=== PATIENT | female | born 1960 | race African-American/Black ===

== ENCOUNTER 2024-05-09 14:50 | Inpatient (IN) | payer OTHER ==
[~2024-05-09] VITALS: Ht 167.6 cm; Wt 65.3 kg
[2024-05-09 15:22] LABS: BASOPHILS % 0.9 % (0.0-2.0); EOSINOPHILS % 0.2 % (0.0-5.0); HEMOGLOBIN. 11.7 g/dL (12.0-16.0); LYMPHOCYTES % 28.8 % (20.0-50.0); MEAN CORPUSCULAR HEMOGLOBIN 29.6 pg (28.0-32.0); MEAN CORPUSCULAR HGB CONC 32.4 g/dL (31.0-37.0); MEAN CORPUSCULAR VOLUME 91.6 fL (81.0-99.0); MEAN PLATELET VOLUME 6.7 fl (7.4-10.4); MONOCYTES % 8.4 % (2.0-8.0); NEUTROPHILS % 61.7 % (40.0-76.0); PLATELET 274 x1000/uL (130-400); RED BLOOD CELL COUNT 3.93 mill/uL (4.2-5.4); RED CELL DISTRIBUTION WIDTH 15.5 % (11.6-14.6); WHITE BLOOD COUNT 10.4 x1000/uL (4.5-11.0)
[2024-05-09 15:29] LABS: CARBON DIOXIDE 23 mEq/L (21-32)
[2024-05-09 15:30] LABS: CHLORIDE 101 mEq/L (98-107); POTASSIUM 3.7 mEq/L (3.5-5.1); SODIUM 135 mEq/L (136-145)
[2024-05-09] MEDS: IOHEXOL-350 100 ML BOTTLE ONE ×2 (15:31→23:06)
[2024-05-09 15:33] LABS: PROTHROMBIN TIME 11.3 sec (9.6-11.0)
[2024-05-09 15:34] LABS: GLUCOSE 102 mg/dL (70-105); UREA NITROGEN BLOOD 42 mg/dL (9-23)
[2024-05-09 15:36] LABS: CREATINE KINASE 412 IU/L (34-145)
[2024-05-09] MEDS: ASPIRIN 81MG TABLET PO ONE (15:37)
[2024-05-09 15:54] LABS: ETHANOL BLOOD < 10 mg/dL (<10)
[2024-05-09 15:56] LABS: TROPONIN I HIGH SENSITIVITY 1729 ng/L (3.0-34)
[2024-05-09] MEDS ORDERED: IPRATROPIUM/ALBUTEROL 0.5-3(2.5)MG/3ML NEB HHN PRN (16:45)
[2024-05-09] MEDS ORDERED: ACETAMINOPHEN 650MG/20.3ML UDC GT PRN (16:45)
[2024-05-09] MEDS ORDERED: ONDANSETRON HCL 4MG/2ML INJ IV PRN (16:45)
[2024-05-09] MEDS: ASPIRIN 81MG TABLET PO NR (16:51)
[2024-05-09] MEDS: SODIUM CHLORIDE 0.9% 1,000 ML IV SCH (18:20)
[2024-05-09 18:36] LABS: CARBON DIOXIDE 24 mEq/L (21-32); CHLORIDE 101 mEq/L (98-107); SODIUM 136 mEq/L (136-145)
[2024-05-09 18:37] LABS: CALCIUM 9.6 mg/dL (8.7-10.4)
[2024-05-09 18:41] LABS: CREATININE 1.9 mg/dL (0.6-1.0); GLUCOSE 86 mg/dL (70-105)
[2024-05-09 18:42] LABS: UREA NITROGEN BLOOD 40 mg/dL (9-23)
[2024-05-09 18:43] LABS: ALANINE AMINOTRANSFERASE 13 IU/L (10-49); ALBUMIN 4.5 g/dL (3.2-4.8); ASPARTATE AMINOTRANSFERASE 30 IU/L (<34); IRON 54 ug/dL (50-170)
[2024-05-09 18:44] LABS: BILIRUBIN DIRECT 0.2 mg/dL (<=3.0); BILIRUBIN TOTAL 0.5 mg/dL (0.1-1.0); PHOSPHORUS 4.3 mg/dL (2.5-4.9); PROTEIN TOTAL 7.2 g/dL (6.0-8.3)
[2024-05-09 18:46] LABS: TOTAL IRON BINDING CAPACITY 294 ug/dl (250-425)
[2024-05-09 18:57] LABS: PARTIAL THROMBOPLASTIN TIME 26.1 sec (23.4-31.0); PROTHROMBIN TIME 10.9 sec (9.6-11.0)
[2024-05-09 19:04] LABS: TROPONIN I HIGH SENSITIVITY 1668 ng/L (3.0-34)
[2024-05-09 23:44] LABS: CLARITY URINE CLEAR (CLEAR); COLOR URINE YELLOW (YELLOW); GLUCOSE URINE NEGATIVE (NEGATIVE); KETONES URINE TRACE (NEGATIVE); LEUKOCYTE ESTERASE URINE NEGATIVE (NEGATIVE); NITRITE URINE NEGATIVE (NEGATIVE); OCCULT BLOOD URINE NEGATIVE (NEGATIVE); PH URINE 5.5 (4.5-8.0); PROTEIN URINE 1+ (NEGATIVE); SPECIFIC GRAVITY URINE 1.056 (1.005-1.030)
[2024-05-09 23:51] LABS: *AMPHETAMINES SCREEN URINE NEGATIVE (NEGATIVE)
[2024-05-09 23:52] LABS: *BARBITURATES SCREEN URINE NEGATIVE (NEGATIVE); *BENZODIAZEPINES SCREEN URINE NEGATIVE (NEGATIVE); *COCAINE SCREEN URINE NEGATIVE (NEGATIVE); CANNABINOID URINE SCREEN PRESUMPTIVE POSITIVE (NEGATIVE); ECSTASY MDMA SCREEN URINE NEGATIVE (NEGATIVE); METHADONE URINE SCREEN NEGATIVE (NEGATIVE); OPIATES URINE SCREEN NEGATIVE (NEGATIVE); PHENCYCLIDINE URINE SCREEN NEGATIVE (NEGATIVE)
[2024-05-10 00:24] LABS: SQUAMOUS EPITHELIAL CELL URINE 1+ /lpf (RARE/1+)
[2024-05-10 00:26] LABS: BACTERIA URINE 1+; RBC URINE 0-2 /hpf (0-2); WBC URINE 0-2 /hpf (0-2)
[2024-05-10 03:19] LABS: CREATINE KINASE MB FRACTION 7.8 ng/mL (0.5-3.6)
[2024-05-10 08:31] LABS: POTASSIUM 3.7 mEq/L (3.5-5.1)
[2024-05-10 08:32] LABS: CALCIUM 9.3 mg/dL (8.7-10.4)
[2024-05-10 08:37] LABS: CREATININE 1.4 mg/dL (0.6-1.0)
[2024-05-10 08:38] LABS: CREATINE KINASE MB FRACTION 9.8 ng/mL (0.5-3.6)
[2024-05-10 08:42] LABS: T4 FREE 1.42 ng/dL (0.89-1.76)
[2024-05-10 08:43] LABS: THYROID STIMULATING HORMONE 0.41 uIU/mL (0.55-4.78)
[2024-05-10] MEDS: ASPIRIN 81MG TABLET PO SCH ×2 (08:43→09:04)
[2024-05-10] MEDS ORDERED: HYDRALAZINE HCL 25MG TABLET PO PRN (10:00)
[2024-05-10] MEDS: CLOPIDOGREL 75MG TABLET PO SCH (10:52)
[2024-05-10 17:45] LABS: TROPONIN I HIGH SENSITIVITY 723 ng/L (3.0-34)
[2024-05-10 20:00] VITALS: BP 118/69; PULSE 68; RESP 18; TEMP 98.8
[2024-05-10] MEDS ORDERED: ATORVASTATIN CALCIUM 40MG TABLET PO SCH (21:00)
[2024-05-10] MEDS: ATORVASTATIN CALCIUM 40MG TABLET PO SCH (21:08)
[2024-05-11 01:10] VITALS: BP 99/58; PULSE 80; TEMP 98.8; O2SAT 100
[2024-05-11] MEDS ORDERED: ASPIRIN 81MG EC TABLET PO SCH (09:00)
== END 2024-05-11 01:58 | disposition short-term general hospital (02) | DRG 91 ==
LOC: ER 14:50 → MICUSO 16:19 → EDBEDREQTM 16:23 → EDBEDREQ 16:23 → 5WST 05-10 14:37 → 7EST 05-10 17:46
PROVIDERS: ADMIT Preventive Medicine Clinical Informatics; ATTEND Preventive Medicine Clinical Informatics
DX: R47.01 Aphasia (principal); I21.A1 Myocardial infarction type 2; N17.9 Acute kidney failure, unspecified; I13.0 Hypertensive heart and chronic kidney disease with heart failure and stage 1 through stage 4 chronic kidney disease, or unspecified chronic kidney disease; D64.9 Anemia, unspecified; N18.9 Chronic kidney disease, unspecified; I50.9 Heart failure, unspecified; E78.00 Pure hypercholesterolemia, unspecified; E11.22 Type 2 diabetes mellitus with diabetic chronic kidney disease; Z79.02 Long term (current) use of antithrombotics/antiplatelets; Z79.82 Long term (current) use of aspirin; Z82.49 Family history of ischemic heart disease and other diseases of the circulatory system; Z86.73 Personal history of transient ischemic attack (TIA), and cerebral infarction without residual deficits; Z88.0 Allergy status to penicillin; Z98.61 Coronary angioplasty status
CPT/HCPCS: 36415; 70496; 70498; 70551; 71045; 80048; 80061; 80076; 80305; 80320; 81003; 82550; 82553; 82728; 82962; 83036; 83540; 83550; 83605; 83735; 83880; 84100; 84439; 84443; 84484; 85025; 93005; 99291; Q9967; G0480

== ENCOUNTER 2024-08-13 14:50 | Inpatient (IN) | payer OTHER ==
[~2024-08-13] VITALS: Ht 170.2 cm; Wt 61.7 kg
[2024-08-13 15:57] LABS: BASOPHILS % 0.7 % (0.0-2.0); EOSINOPHILS % 3.3 % (0.0-5.0); HEMATOCRIT. 37.1 % (36.0-48.0); HEMOGLOBIN. 12.2 g/dL (12.0-16.0); LYMPHOCYTES % 35.3 % (20.0-50.0); MEAN CORPUSCULAR HEMOGLOBIN 30.2 pg (28.0-32.0); MEAN CORPUSCULAR HGB CONC 32.9 g/dL (31.0-37.0); MEAN CORPUSCULAR VOLUME 91.7 fL (81.0-99.0); MEAN PLATELET VOLUME 6.3 fl (7.4-10.4); MONOCYTES % 4.6 % (2.0-8.0); NEUTROPHILS % 56.1 % (40.0-76.0); PLATELET 326 x1000/uL (130-400); RED BLOOD CELL COUNT 4.05 mill/uL (4.2-5.4); RED CELL DISTRIBUTION WIDTH 14.5 % (11.6-14.6); WHITE BLOOD COUNT 9.1 x1000/uL (4.5-11.0)
[2024-08-13 16:02] LABS: CHLORIDE 104 mEq/L (98-107); SODIUM 141 mEq/L (136-145)
[2024-08-13 16:03] LABS: CARBON DIOXIDE 29 mEq/L (21-32)
[2024-08-13 16:04] LABS: CALCIUM 11.6 mg/dL (8.7-10.4)
[2024-08-13 16:08] LABS: CREATININE 1.4 mg/dL (0.6-1.0); GLUCOSE 152 mg/dL (70-105); PARTIAL THROMBOPLASTIN TIME 26.5 sec (23.4-31.0); PROTHROMBIN TIME 10.9 sec (9.6-11.0); UREA NITROGEN BLOOD 20 mg/dL (9-23)
[2024-08-13 16:32] LABS: TROPONIN I HIGH SENSITIVITY 39 ng/L (3.0-34)
[2024-08-13 18:22] LABS: TROPONIN I HIGH SENSITIVITY 51 ng/L (3.0-34)
[2024-08-13] MEDS: ASPIRIN 81MG TABLET PO ONE (18:36)
[2024-08-13 20:32] LABS: TROPONIN I HIGH SENSITIVITY 74 ng/L (3.0-34)
[2024-08-13 22:30] VITALS: BP 98/58; PULSE 77; RESP 16; TEMP 36.7516
[2024-08-13] MEDS ORDERED: PROT40 MT (23:47)
[2024-08-13] MEDS ORDERED: METF-416 MT (23:47)
[2024-08-13] MEDS ORDERED: ROSU40TA MT (23:47)
[2024-08-13] MEDS ORDERED: ROSU40TA PO (23:47)
[2024-08-13] MEDS ORDERED: RANO500T6 PO (23:53)
[2024-08-13] MEDS ORDERED: CLOP-31 PO (23:53)
[2024-08-13] MEDS ORDERED: GABA-532 PO (23:53)
[2024-08-13] MEDS ORDERED: METO25TA6 MT (23:55)
[2024-08-13] MEDS ORDERED: LISI-186 MT (23:55)
[2024-08-13] MEDS ORDERED: DULO60CA45 MT (23:55)
[2024-08-14] VITALS: BP 109/64; PULSE 79; RESP 20; TEMP 36.28068; O2SAT 99
[2024-08-14] MEDS ORDERED: GUAIFENESIN 200MG/10ML SUGAR FREE UDC PO PRN (00:15)
[2024-08-14] MEDS ORDERED: ONDANSETRON HCL 4MG/2ML INJ IV PRN (00:15)
[2024-08-14] MEDS ORDERED: ACETAMINOPHEN 325MG TABLET PO PRN ×2 (00:15)
[2024-08-14] MEDS ORDERED: IPRATROPIUM/ALBUTEROL 0.5-3(2.5)MG/3ML NEB HHN PRN (00:15)
[2024-08-14] MEDS ORDERED: DOCUSATE SODIUM 100MG CAPSULE PO PRN (00:15)
[2024-08-14] MEDS ORDERED: CLONIDINE 0.1MG TABLET PO PRN (00:15)
[2024-08-14] MEDS ORDERED: DEXTROSE 50% WATER 50ML SYRINGE IV PRN (00:15)
[2024-08-14] MEDS ORDERED: LORAZEPAM 0.5MG TABLET PO PRN (00:15)
[2024-08-14 04:00] VITALS: BP 107/69; PULSE 74; RESP 20; TEMP 36.114; O2SAT 100
[2024-08-14] MEDS: INSULIN LISPRO 100 UNITS/ML SUBCUT SCH (06:57)
[2024-08-14] MEDS: BLOOD SUGAR DIAGNOSTIC STRIP TEST SCH (07:20)
[2024-08-14] MEDS: SODIUM CHLORIDE 0.45% 1,000 ML IV SCH (07:23)
[2024-08-14 07:33] LABS: HEMATOCRIT 34.5 % (36.0-48.0); HEMOGLOBIN 11.3 g/dL (12.0-16.0); MEAN CORPUSCULAR HEMOGLOBIN 29.9 pg (28.0-32.0); MEAN CORPUSCULAR HGB CONC 32.6 g/dL (31.0-37.0); MEAN CORPUSCULAR VOLUME 91.8 fL (81.0-99.0); PLATELET 288 x1000/uL (130-400); RED BLOOD CELL COUNT 3.76 mill/uL (4.2-5.4); RED CELL DISTRIBUTION WIDTH 14.1 % (11.6-14.6); WHITE BLOOD COUNT 7.7 x1000/uL (4.5-11.0)
[2024-08-14 07:39] LABS: CARBON DIOXIDE 30 mEq/L (21-32); CHLORIDE 104 mEq/L (98-107); POTASSIUM 4.6 mEq/L (3.5-5.1); SODIUM 141 mEq/L (136-145)
[2024-08-14 07:40] LABS: CALCIUM 10.6 mg/dL (8.7-10.4); CREATINE KINASE MB FRACTION 4.7 ng/mL (0.5-3.6)
[2024-08-14 07:44] LABS: ALBUMIN 4.1 g/dL (3.2-4.8); T4 FREE 1.53 ng/dL (0.89-1.76); THYROID STIMULATING HORMONE 0.41 uIU/mL (0.55-4.78)
[2024-08-14 07:45] LABS: CREATININE 1.1 mg/dL (0.6-1.0); GLUCOSE 101 mg/dL (70-105); TRIGLYCERIDE 91 mg/dL (0-150); UREA NITROGEN BLOOD 18 mg/dL (9-23)
[2024-08-14 07:46] LABS: CREATINE KINASE 100 IU/L (34-145); LDL CHOLESTEROL 60 mg/dL (5-100)
[2024-08-14 07:47] LABS: CHOLESTEROL 120 mg/dL (<200); HDL CHOLESTEROL 42 mg/dL (>65)
[2024-08-14 08:28] VITALS: BP 106/62; PULSE 64; RESP 18; TEMP 36.55848; O2SAT 96
[2024-08-14] MEDS: LISINOPRIL 20MG TABLET PO SCH (08:30)
[2024-08-14 08:38] LABS: TROPONIN I HIGH SENSITIVITY 88 ng/L (3.0-34)
[2024-08-14] MEDS: ASPIRIN 81MG TABLET PO SCH (09:56)
[2024-08-14] MEDS: ENOXAPARIN 40MG/0.4ML SYR SUBCUT SCH (09:56)
[2024-08-14 11:41] VITALS: BP 110/58; PULSE 76; RESP 18; TEMP 37.00296; O2SAT 96
[2024-08-14 12:59] LABS: TROPONIN I HIGH SENSITIVITY 71 ng/L (3.0-34)
[2024-08-14 14:24] VITALS: BP 108/60; PULSE 78; TEMP 97.8; O2SAT 100
[2024-08-14 16:10] VITALS: BP 108/60; PULSE 78; RESP 18; TEMP 36.55848; O2SAT 100
[2024-08-14 16:47] LABS: CREATINE KINASE MB FRACTION 3.8 ng/mL (0.5-3.6)
[2024-08-14] MEDS ORDERED: ENOXAPARIN 60MG/0.6ML SYR SUBCUT SCH (20:00)
[2024-08-14] MEDS ORDERED: ATORVASTATIN CALCIUM 40MG TABLET PO SCH (21:00)
== END 2024-08-14 16:10 | disposition short-term general hospital (02) | DRG 281 ==
LOC: ER 14:50 → 8WST 20:02 → EDBEDREQ 20:04
PROVIDERS: ADMIT Internal Medicine; ATTEND Internal Medicine
DX: R07.89 Other chest pain (principal); N17.9 Acute kidney failure, unspecified; I21.A1 Myocardial infarction type 2; I25.10 Atherosclerotic heart disease of native coronary artery without angina pectoris; Z20.822 Contact with and (suspected) exposure to COVID-19; I11.0 Hypertensive heart disease with heart failure; F17.210 Nicotine dependence, cigarettes, uncomplicated; E78.00 Pure hypercholesterolemia, unspecified; F12.10 Cannabis abuse, uncomplicated; I50.9 Heart failure, unspecified; E11.40 Type 2 diabetes mellitus with diabetic neuropathy, unspecified; E83.52 Hypercalcemia; Z86.73 Personal history of transient ischemic attack (TIA), and cerebral infarction without residual deficits; Z95.5 Presence of coronary angioplasty implant and graft; Z88.0 Allergy status to penicillin; Z88.1 Allergy status to other antibiotic agents; I25.2 Old myocardial infarction
CPT/HCPCS: 36415; 71045; 80048; 80061; 82040; 82550; 82553; 82962; 83036; 83880; 84439; 84443; 84484; 85025; 85027; 87426; 93005; 93970; 99291; J1650